=== PATIENT | female | born 1980 | race Asian ===

== ENCOUNTER 2016-11-05 15:27 | Outpatient (CLI) | payer BC ==
[~2016-11-05] VITALS: Ht 167.6 cm; Wt 77.0 kg
[2016-11-05 15:47] VITALS: BP 121/75
== END 2016-11-05 16:34 | disposition home or self-care (01) ==
LOC: LDRP-OP 15:27 → 2WEST 15:28 → LDRP-OP 03-02 10:33
DX: O46.92 Antepartum hemorrhage, unspecified, second trimester (principal); O99.89 Other specified diseases and conditions complicating pregnancy, childbirth and the puerperium; Z3A.28 28 weeks gestation of pregnancy
CPT/HCPCS: 59025; G0378

== ENCOUNTER 2017-01-26 08:23 | Inpatient (IN) | payer BC ==
[~2017-01-26] VITALS: Ht 167.6 cm; Wt 90.2 kg
[2017-01-26] VITALS (8 sets, daily range): BP systolic 108–144; BP diastolic 58–81
[~2017-01-26 08:23] MED LIST: COLACE100 MG PO; PRENATAL TABLE1 EACH PO; ZANTAC75 M1 PO
[2017-01-26] MEDS ORDERED: ENDOCET 5-3251 EACH PO (13:31)
[2017-01-26] MEDS ORDERED: IBUPROFEN800 MG PO (13:31)
[2017-01-27 03:30] VITALS: BP 108/59
[2017-01-27 06:52] LABS: EOSINOPHIL (%) 0.6 % (0-5); EOSINOPHIL COUNT 0.1 K/uL (0-0.3); HEMATOCRIT 28.1 % (36.0-46.0); IMMATURE GRANULOCYTE (%) 0.5 % (0.0-0.7); IMMATURE GRANULOCYTE COUNT 0.1 K/uL; INSTRUMENT ABS NEUTROPHIL CT 7.9 K/uL; LYMPHOCYTE COUNT 2.4 K/uL (1.0-2.8); MCH 24.7 PG (29.0-34.0); MCHC 30.6 G/DL (30.0-36.0); MCV 80.7 FL (83-99); MEAN PLAT.VOLUME 9.9 uM^3 (9.5-12.4); MONOCYTE COUNT 0.9 K/uL (0-0.8); NEUTROPHIL (%) 69.3 % (45-76); NEUTROPHIL COUNT 7.9 K/uL (1.8-6.4); PLATELET COUNT 349 K/uL (156-360); RBC DIS.WIDTH-CV 14.7 % (11.8-14.6); RBC DIS.WIDTH-SD 43.4 % (39-53); WHITE BLOOD COUNT 11.3 K/uL (4.1-10.2)
[2017-01-27 06:53] LABS: RED BLOOD COUNT 3.48 M/uL (3.80-5.20)
[2017-01-27 14:37] VITALS: BP 107/61
[2017-01-27 17:56] VITALS: BP 111/53
[2017-01-27 23:09] VITALS: BP 123/64
[2017-01-28 03:17] VITALS: BP 125/58
[2017-01-28 07:06] VITALS: BP 125/69
[2017-01-28 10:54] VITALS: BP 130/74
[2017-01-28 15:48] VITALS: BP 124/73
== END 2017-01-28 17:16 | disposition home or self-care (01) | DRG 766 ==
LOC: 2SOUTH → 2WEST 10:10 → 2SOUTH 16:14 → 2WEST 01-28 17:16
PROVIDERS: Obstetrics & Gynecology
PROC: 10D00Z1 Extraction of Products of Conception, Low, Open Approach (ICD-10-PCS; principal; 2017-01-26)
DX: O34.211 Maternal care for low transverse scar from previous cesarean delivery (principal); N85.8 Other specified noninflammatory disorders of uterus; O99.824 Streptococcus B carrier state complicating childbirth; Z3A.39 39 weeks gestation of pregnancy; Z37.0 Single live birth
CPT/HCPCS: 36415; 85025; 86850; 86900; 86901; J0690; J1100; J1170; J2274; J2405; J7120